=== PATIENT | female | born 1970 | race African-American/Black ===

== ENCOUNTER 2020-03-26 11:31 | Emergency (ER) | payer MEDICARE, MEDICAID, OTHER ==
[2020-03-27 11:56] LABS: SARS-CoV-2 MS2 Positive; SARS-CoV-2 N Gene Negative; SARS-CoV-2 S Gene Negative; SARS-CoV-2 orf1ab Negative
== END 2020-03-26 12:26 | disposition home or self-care (01) ==
LOC: ERS 11:31
DX: R05 Cough (principal); Z20.828 Contact with and (suspected) exposure to other viral communicable diseases; E78.5 Hyperlipidemia, unspecified; I10 Essential (primary) hypertension; E11.9 Type 2 diabetes mellitus without complications; J45.909 Unspecified asthma, uncomplicated; F31.9 Bipolar disorder, unspecified; F17.210 Nicotine dependence, cigarettes, uncomplicated
CPT/HCPCS: 99283; U0003; 87635

== ENCOUNTER 2020-08-16 00:39 | Emergency (ER) | payer MEDICARE, MEDICAID ==
[2020-08-16] MEDS ORDERED: Ketorolac Tromethamine 30 MG/ML VIAL ONE (01:02)
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
== END 2020-08-16 02:25 | disposition home or self-care (01) ==
LOC: ERS 00:39
DX: M25.511 Pain in right shoulder (principal); M25.512 Pain in left shoulder; M54.2 Cervicalgia; E78.5 Hyperlipidemia, unspecified; I10 Essential (primary) hypertension; E11.9 Type 2 diabetes mellitus without complications; J45.909 Unspecified asthma, uncomplicated; F31.9 Bipolar disorder, unspecified; F20.9 Schizophrenia, unspecified; F17.210 Nicotine dependence, cigarettes, uncomplicated; V49.9XXA Car occupant (driver) (passenger) injured in unspecified traffic accident, initial encounter
CPT/HCPCS: 70450; 71046; 72125; 96372; J1885

== ENCOUNTER 2021-10-15 02:28 | Inpatient (IN) | payer MEDICARE, MEDICAID ==
[2021-10-15 02:50] LABS: #Lymphocytes 2.6 thou/uL (1.20-3.40); #Monocytes 0.5 thou/uL (0.11-0.59); #Neutrophils 2.6 thou/uL (1.40-6.50); %Basophils 0.8 % (0.0-1.0); %Eosinophils 0.7 % (0.0-10.0); %Lymphocytes 44.6 % (21.0-51.0); %Monocytes 9.3 % (0.0-10.0); %Neutrophils 44.7 % (42.0-75.0); Hemoglobin 13.5 g/dL (12.0-16.0); Mean Corpuscular HGB CONC 33.3 g/dL (32.0-36.0); Mean Corpuscular Hemoglobin 29.2 pg (27.0-31.0); Mean Corpuscular Volume 87.8 fL (78.0-98.0); Mean Platelet Volume 6.8 fL (7.4-10.4); Platelet Count 332 thou/uL (130-400); RBC Distribution Width 12.4 % (11.5-14.5); Red Blood Cell (RBC) Count 4.64 mill/uL (4.20-5.40); White Blood Cell (WBC) Count 5.8 thou/uL (4.8-10.8)
[2021-10-15 03:02] LABS: Prothrombin Time 13.3 sec (12.0-14.7)
[2021-10-15 03:03] LABS: PTT 27.3 sec (22.9-36.1)
[2021-10-15 03:12] LABS: ALT (SGPT) 10 U/L (8-55); AST (SGOT) 17 U/L (5-34); Acetaminophen Less than 6.0 mcg/mL (10.0-30.0); Albumin 4.5 g/dL (3.5-5.0); Alcohol 14 mg/dL (Less than 10); Alkaline Phosphatase 93 U/L (40-110); Anion Gap 15 mmol/L (10-20); BUN (Urea Nitrogen) 14 mg/dL (7.0-18.7); Bilirubin, Total 0.8 mg/dL (0.2-1.2); Calc. Creatinine Clearance 0 mL/min (70-130); Calcium 10.1 mg/dL (7.8-10.44); Carbon Dioxide 24 mmol/L (22-29); Chloride 105 mmol/L (98-107); Globulin 3.2 g/dL (2.4-3.5); Glucose 118 mg/dL (70-105); Potassium 3.2 mmol/L (3.5-5.1); Protein, Total 7.7 g/dL (6.0-8.3); Salicylate Less than 8.0 mg/dL (15.0-30.0); Sodium 141 mmol/L (136-145)
[2021-10-15] MEDS ORDERED: Boostrix 0.5 ML (Tdap) VIAL ONE (03:20)
[2021-10-15] MEDS ORDERED: ceFAZolin 2 GM/DEX 5% 100 ML BAG ONE (03:20)
[2021-10-15] MEDS ORDERED: Dextrose 50% Abboject 50 ML SYRINGE SLOW IVP PRN (03:46)
[2021-10-15] MEDS ORDERED: hydrALAZINE 20 MG/ML VIAL SLOW IVP PRN (03:46)
[2021-10-15] MEDS ORDERED: Ondansetron PF 4 MG/2 ML Vial IVP PRN (03:46)
[2021-10-15] MEDS ORDERED: Dextrose 5% in Water 1,000 ML IV PRN (03:46)
[2021-10-15] MEDS ORDERED: Insulin Regular 300 UNITS/3 ML VIAL SC PRN ×2 (03:46)
[2021-10-15] MEDS ORDERED: traMADol HCl 50 MG TAB PO PRN (03:49)
[2021-10-15 04:20] LABS: Pregnancy Test - Urine (BHCG) Negative (Negative); Pregu Control Background? CLEAR/WHITE (CLR/WHITE); Pregu Control Bar Appear? YES (CONTROL BAR); Specific Gravity 1.043 (1.002-1.036)
[2021-10-15 04:24] LABS: Bilirubin Negative (Negative); Blood, Urine Negative (Negative); Clarity Clear (Clear); Glucose, Urine (Dipstick) Normal (Negative); Ketone, Urine Negative (Negative); Leukocyte Negative Leu/uL (Negative); Nitrite Negative (Negative); Protein, Urine (Dipstick) Negative (Neg-Trace); Specific Gravity, Urine 1.049 (1.002-1.036); Urobilinogen Normal mg/dL (Less than 2)
[2021-10-15 04:29] LABS: Amphetamine Detected (NotDetected); Barbiturates Screen Not Detected (NotDetected); Benzodiazepine Screen Not Detected (NotDetected); Cocaine Metabolite Screen Detected (NotDetected); Methadone Not Detected (NotDetected); Methamphetamine Detected (NotDetected); Opiate Screen Not Detected (NotDetected); Oxycodone Screen Not Detected (NotDetected); Phencyclidine (PCP) Not Detected (NotDetected); THC/Cannabinoid Screen Not Detected (NotDetected); Tricyclic Screen Not Detected (NotDetected)
[2021-10-15 05:10] LABS: Magnesium 1.9 mg/dL (1.6-2.6); Phosphorus 3.3 mg/dL (2.3-4.7)
[2021-10-15 05:11] LABS: SARS-CoV-2 NAA Rapid Test DETECTED (NotDetected)
[2021-10-15] MEDS ORDERED: Acetaminophen 325 MG TAB ONE (07:31)
[2021-10-15] MEDS ORDERED: Potassium Chloride 20 MEQ/100 ML PREMIX BAG ONE ×2 (07:32→10:20)
[2021-10-15] MEDS: Acetaminophen 325 MG TAB PO SCH ×2 (07:42→12:31)
[2021-10-15] MEDS: Potassium Chloride 20 MEQ in Premix Bag 1 BAG IVPB SCH ×2 (07:43→10:25)
[2021-10-15] MEDS ORDERED: traMADol HCl 50 MG TAB ONE (08:38)
[2021-10-15] MEDS ORDERED: Polyethylene Glycol 3350 17 GM Packet PO SCH (09:00)
[2021-10-15] MEDS ORDERED: Senokot S 8.6-50 MG TAB PO SCH (09:00)
[2021-10-15] MEDS ORDERED: Famotidine 20 MG TAB PO SCH (09:00)
[2021-10-15] MEDS ORDERED: HYDROmorphone 0.5 MG/0.5 ML SYRINGE SLOW IVP SCH (09:10)
[2021-10-15] MEDS ORDERED: Famotidine 20 MG TAB ONE (09:50)
[2021-10-15] MEDS ORDERED: cloNIDine 0.1mg/24 Hour PATCH TD SCH (10:00)
[2021-10-15] MEDS ORDERED: HYDROmorphone 0.5 MG/0.5 ML SYRINGE ONE (10:27)
[2021-10-15] MEDS ORDERED: traMADol HCl 50 MG TAB PO SCH (12:00)
== END 2021-10-15 16:45 | disposition home or self-care (01) | DRG 579 ==
LOC: ERS 02:28 → ERHOLD 03:46
PROVIDERS: ADMIT Surgery; ATTEND Surgery
PROC: 0WQ8XZZ Repair Chest Wall, External Approach (ICD-10-PCS; principal; 2021-10-15)
DX: S21.111A Laceration without foreign body of right front wall of thorax without penetration into thoracic cavity, initial encounter (principal); U07.1 COVID-19; S27.0XXA Traumatic pneumothorax, initial encounter; X78.1XXA Intentional self-harm by knife, initial encounter; F31.9 Bipolar disorder, unspecified; F17.210 Nicotine dependence, cigarettes, uncomplicated; E78.5 Hyperlipidemia, unspecified; E87.6 Hypokalemia; F20.9 Schizophrenia, unspecified; I10 Essential (primary) hypertension; Z98.51 Tubal ligation status; Z98.890 Other specified postprocedural states
CPT/HCPCS: 71045; 71260; 80306; 80307; 81003; 81025; 83735; 84100; 85025; 85610; 85730; 90715; G0390; J1170; J3480; U0002

== ENCOUNTER 2024-06-01 10:10 | Emergency (ER) | payer OTHER ==
[2024-06-01] MEDS ORDERED: Morphine 4 MG/ML VIAL ONE (11:11)
== END 2024-06-01 11:21 | disposition home or self-care (01) ==
LOC: ERS 10:10
DX: S00.03XA Contusion of scalp, initial encounter (principal); I10 Essential (primary) hypertension; E11.9 Type 2 diabetes mellitus without complications; F17.210 Nicotine dependence, cigarettes, uncomplicated; F20.9 Schizophrenia, unspecified; F31.9 Bipolar disorder, unspecified; E78.00 Pure hypercholesterolemia, unspecified; J45.909 Unspecified asthma, uncomplicated; W10.9XXA Fall (on) (from) unspecified stairs and steps, initial encounter; Y93.89 Activity, other specified
CPT/HCPCS: 70450; 72125; 96372; 99283; J2272

== ENCOUNTER 2024-09-10 20:47 | Emergency (ER) | payer OTHER ==
[2024-09-10] MEDS ORDERED: Ketorolac Tromethamine 30 MG (1 mL) VIAL ONE (23:07)
[2024-09-10] MEDS ORDERED: fentaNYL 50 mcg/mL 1 mL Vial ONE (23:08)
== END 2024-09-10 23:30 | disposition home or self-care (01) ==
LOC: ERS 20:47
DX: M23.91 Unspecified internal derangement of right knee (principal); E11.9 Type 2 diabetes mellitus without complications; F17.210 Nicotine dependence, cigarettes, uncomplicated; I12.9 Hypertensive chronic kidney disease with stage 1 through stage 4 chronic kidney disease, or unspecified chronic kidney disease; N18.9 Chronic kidney disease, unspecified; Z79.899 Other long term (current) drug therapy; X50.1XXA Overexertion from prolonged static or awkward postures, initial encounter
CPT/HCPCS: 73552; 73564; 73590; 96372; 99284; J1885; J3010

== ENCOUNTER 2025-08-02 18:27 | Emergency (ER) | payer OTHER | END 2025-08-02 19:10 | disposition home or self-care (01) | LOC: ERS 18:27 | DX: K04.7 Periapical abscess without sinus (principal); K08.89 Other specified disorders of teeth and supporting structures; K05.00 Acute gingivitis, plaque induced; I10 Essential (primary) hypertension; F17.210 Nicotine dependence, cigarettes, uncomplicated; Z79.899 Other long term (current) drug therapy | CPT/HCPCS: 99282 ==